=== PATIENT | female | born 1995 | race Native Hawaiian/Other Pacific Islander ===

== ENCOUNTER 2017-03-05 07:25 | Emergency (ER) | payer OTHER ==
[~2017-03-05] VITALS: Ht 154.9 cm; Wt 59.0 kg
[2017-03-05 07:35] VITALS: BP 126/85; TEMP 99.9
[2017-03-05 08:02] LABS: PLATELET COUNT 330 K/uL (152-353)
== END 2017-03-05 09:08 | disposition home or self-care (01) ==
LOC: ED 07:25
PROVIDERS: Specialist
DX: L02.01 Cutaneous abscess of face (principal)
CPT/HCPCS: 36415; 85027; 85651; 87070; 87077; 87185; 87186; 87205; 99283

== ENCOUNTER 2017-03-05 12:30 | Inpatient (IN) | payer OTHER ==
[~2017-03-05] VITALS: Ht 162.6 cm; Wt 58.7 kg
[2017-03-05 12:44] VITALS: BP 143/88; TEMP 98.9
[2017-03-05 17:05] VITALS: BP 132/77; TEMP 97.8; Ht 162.6 cm; Wt 58.7 kg
[2017-03-05 20:55] VITALS: BP 131/80; TEMP 98
[2017-03-06] VITALS: BP 116/62; TEMP 97.8
[2017-03-06 04:00] VITALS: BP 98/59; TEMP 98
[2017-03-06 06:19] LABS: PLATELET COUNT 303 K/uL (152-353)
[2017-03-06 06:20] LABS: POTASSIUM 3.8 mmol/L (3.6-5.2); SODIUM 136 mmol/L (136-145)
[2017-03-06 08:00] VITALS: BP 108/74; TEMP 98.1
[2017-03-06 11:57] VITALS: BP 104/67; TEMP 98.2
[2017-03-06 15:51] VITALS: BP 123/83; TEMP 98.5
--- NOTE | 2017-03-06 19:26 | NUR ---
1800 SMALL AREA TO LEFT CHEEK NOTED TO BE DRAINING THICK GREEN DRAINAGE. WOUND CULTURE CANCELLED PER MD. 2X2 APPLIED TO LEFT CHEEK. EXPLAINED TO PT TO KEEP HANDS OUT OF EYES AND WOUND. PT COTINUES TO "PICK AT WOUND TO LEFT CHEEK WITH ALCOHOL WIPES"
[2017-03-06 20:00] VITALS: BP 123/78; TEMP 98.7
[2017-03-07 00:04] VITALS: BP 93/51; TEMP 97.5
[2017-03-07 04:00] VITALS: BP 101/57; TEMP 97.5
[2017-03-07 06:21] LABS: PLATELET COUNT 266 K/uL (152-353)
[2017-03-07 06:28] LABS: POTASSIUM 3.6 mmol/L (3.6-5.2); SODIUM 134 mmol/L (136-145)
[2017-03-07 08:00] VITALS: BP 98/54; TEMP 97.6
[2017-03-07 12:00] VITALS: BP 98/58; TEMP 98.1
--- NOTE | 2017-03-07 15:06 | NUR ---
PT AMBULATING OUTSIDE AT THIS TIME. NAD NOTED. GAIT STEADY ENCOURAGED PT TO KEEP WARM COMPRESSES ON FACE PROVIDED EVERY 4 HOURS.
[2017-03-07 16:00] VITALS: BP 120/79; TEMP 98.2
[2017-03-07 20:00] VITALS: BP 141/88; TEMP 98.4
[2017-03-08] VITALS: BP 120/74; TEMP 98.2
--- NOTE | 2017-03-08 01:23 | NUR ---
03/08/17 AT 0046PT C/O 'BURNING" INDIGESTION AND REQUESTING SOMETHING FOR IT. PT NOW WALKING OUTSIDE PUSHING IV POLE, GAIT STEADY, NO DISTRESS NOTED.
[2017-03-08 04:00] VITALS: BP 111/71; TEMP 98
[2017-03-08 06:26] LABS: PLATELET COUNT 330 K/uL (152-353)
[2017-03-08 06:50] LABS: POTASSIUM 3.9 mmol/L (3.6-5.2); SODIUM 141 mmol/L (136-145)
[2017-03-08 07:48] VITALS: BP 117/76; TEMP 97.8
--- NOTE | 2017-03-08 08:30 | NUR ---
PT AMBULATING UP HALLWAY. PT STATES SHE WAS OUTSIDE SMOKING. PT STATES SHE UNHOOKED HERSELF FROM IV AND WENT OUTSIE. EDUCATED PT TO ONLY ALLOW NURE TO ADJUST IV AND CALL NURSE FOR ASSISTANCE. PT VERBALIZED UNDERSTANDING. IV SITE LEAKING WHEN FLUSHED. IV DC'D WITH CANNULA INTACT AND SITE CARE PROVIDED. SMOKING CESSATION EDIUCATION PROVIDED.
--- NOTE | 2017-03-08 08:46 | NUR ---
DR WEBB AT BS
--- NOTE | 2017-03-08 09:39 | NUR ---
2 ATTEMPTS TO RESTART IV, UNSUCCESSFUL AT THIS TIME. UPON LIFTING COVERS BACK OVER PT, SMALL BLUE PILL IN BED. ASKED PT IF SHE KNEW WHAT PILL WAS, PT VERBALIZED NO SHE DIDNT KNOW WHAT IT WAS. REMOVED PILL FROM ROOM WITH CHARGE NURSE AND IDENTIFIED BY PHARMACY CLONAZEPAM 1MG. DR BETANCUR NOTIFIED.
--- NOTE | 2017-03-08 10:32 | NUR ---
PT AMBULATING OUTSIDE. ENCOURAGED PT TO NOT GO OUTSIDE TO SMOKE.
--- NOTE | 2017-03-08 10:33 | NUR ---
IV STARTED SUCCESSFUL AT THIS TIME PER MAMADOU FLORES RN. 20G TO L AC X 3 ATTEMPTS. PT TOLERATED WELL. BLOOD DRAWN FOR VANC TROUGH.
[2017-03-08 12:00] VITALS: BP 124/83; TEMP 98
--- NOTE | 2017-03-08 13:45 | NUR ---
DC INSTRUCTIONS GIVEN TO PT AND MOTHER. PT VERBALIZES UNDERSTANDING. IV DC'D WITH CANNULA INTACT AND SITE CARFE PROVIDED. PT INSTRUCTED TO FOLLOW UP WITH PRIMARY DOCTOR OF CHOICE IN 3-5 DAYS. PT VERBALIZED UNDERSTANDING. NAD NOTED. PT LEFT VIA AMBULATORY REQUESTED.
== END 2017-03-08 13:48 | disposition home or self-care (01) | DRG 603 ==
LOC: ED 12:30 → MED/SURG 13:15
PROVIDERS: Emergency Medicine
DX: L03.116 Cellulitis of left lower limb (principal); F15.20 Other stimulant dependence, uncomplicated; L03.211 Cellulitis of face; B95.61 Methicillin susceptible Staphylococcus aureus infection as the cause of diseases classified elsewhere
CPT/HCPCS: 36415; 80048; 80074; 80202; 80307; 81000; 83735; 85027; 87040; 87070; 96365; 96366; 96367; 96374; 96375; 99283; G0479; J1170; J1885; J2175; J2405; J3490

== ENCOUNTER 2018-05-27 16:14 | Emergency (ER) | payer OTHER ==
[~2018-05-27] VITALS: Ht 170.2 cm; Wt 68.0 kg
[2018-05-27 17:11] LABS: PLATELET COUNT 265 K/uL (152-353)
[2018-05-27 17:25] LABS: POTASSIUM 3.3 mmol/L (3.6-5.2)
[2018-05-27 20:00] VITALS: BP 105/69; TEMP 98
== END 2018-05-27 20:00 | disposition home or self-care (01) ==
LOC: ED 16:14
PROVIDERS: Family Medicine
DX: F10.129 Alcohol abuse with intoxication, unspecified (principal)
CPT/HCPCS: 36415; 80053; 80307; 80320; 80329; 81000; 85027; 99283

== ENCOUNTER 2018-11-26 09:46 | Emergency (ER) | payer OTHER ==
[~2018-11-26] VITALS: Ht 170.2 cm; Wt 68.0 kg
[2018-11-26 10:51] VITALS: BP 107/72; TEMP 98
== END 2018-11-26 10:56 | disposition home or self-care (01) ==
LOC: ED 09:46
DX: B86 Scabies (principal); L30.9 Dermatitis, unspecified
CPT/HCPCS: 96372; 99282; J2930; Q0177

== ENCOUNTER 2021-01-22 14:56 | Emergency (ER) | payer OTHER ==
[~2021-01-22] VITALS: Ht 170.2 cm; Wt 68.0 kg
[2021-01-22 15:08] VITALS: BP 134/81; TEMP 100.5
== END 2021-01-22 15:29 | disposition home or self-care (01) ==
LOC: ED 14:56
DX: L98.9 Disorder of the skin and subcutaneous tissue, unspecified (principal)
CPT/HCPCS: 99281